=== PATIENT | female | born 2000 | race Caucasian/White ===

== ENCOUNTER 2025-05-15 12:59 | Emergency (ER) | payer OTHER ==
[2025-05-15] MEDS ORDERED: PRENTAB9 PO (13:23)
== END 2025-05-15 13:06 | disposition admitted as inpatient to this hospital (09) ==
LOC: M ED 12:59
DX: Z53.21 Procedure and treatment not carried out due to patient leaving prior to being seen by health care provider (principal)

== ENCOUNTER 2025-05-15 13:15 | Outpatient (CLI) | payer OTHER ==
[~2025-05-15] VITALS: Ht 160 cm; Wt 78.2 kg
[2025-05-15] MEDS ORDERED: PRENTAB9 PO (13:23)
[2025-05-15] MEDS ORDERED: HOME MED LIST COMPLETE! XX SCH (13:25)
[2025-05-15 13:31] VITALS: BP 99/63
== END 2025-05-15 15:55 | disposition home or self-care (01) ==
LOC: M LDO 13:15
PROVIDERS: ATTEND Obstetrics & Gynecology
DX: O26.892 Other specified pregnancy related conditions, second trimester (principal); R25.2 Cramp and spasm; Z3A.27 27 weeks gestation of pregnancy
CPT/HCPCS: 59025; G0463